=== PATIENT | male | born 1960 | race Caucasian/White ===

== ENCOUNTER 2017-06-22 15:24 | Emergency (ER) | payer MEDICAID ==
[~2017-06-22] VITALS: Ht 177.8 cm; Wt 90.6 kg
[~2017-06-22 15:24] MED LIST: NO HOME MEDS
[2017-06-22] MEDS ORDERED: LORazepam 1 MG tablet PO ONE (17:20)
[2017-06-22] MEDS ORDERED: LORazepam 0.5 MG tablet PO ONE (17:30)
[2017-06-22] MEDS ORDERED: AMOX-419 PO ×2 (19:09→19:14)
[2017-06-22] MEDS ORDERED: TETanus/Pertussis (Acell)/Diphther VAC/PF (Tdap-Adult) 0.5ml syringe IM ONE (19:10)
[2017-06-22 19:32] VITALS: BP 141/97
== END 2017-06-22 19:34 | disposition home or self-care (01) ==
LOC: ER 15:25
DX: S02.2XXA Fracture of nasal bones, initial encounter for closed fracture (principal); Z98.890 Other specified postprocedural states; W18.39XA Other fall on same level, initial encounter; Y93.01 Activity, walking, marching and hiking; Y92.89 Other specified places as the place of occurrence of the external cause; Y99.9 Unspecified external cause status
CPT/HCPCS: 70450; 70486; 72125; 90471; 90715; 99284; A6449

== ENCOUNTER 2020-06-19 09:30 | Emergency (ER) | payer MEDICAID ==
[~2020-06-19] VITALS: Ht 177.8 cm; Wt 89.6 kg
[~2020-06-19 09:30] MED LIST changes: +AMOX-419 PO
[2020-06-19 10:16] LABS: CLARITY,URINE CLEAR (Clear); COLOR,URINE YELLOW (Yellow); GLUCOSE, URINE NEGATIVE (Neg); KETONES,URINE NEGATIVE (Neg); LEUKOCYTE ESTERASE ,URINE NEGATIVE (Neg); NITRITES, URINE NEGATIVE (Neg); OCCULT BLOOD,URINE TRACE-LYSED (Neg); PH,URINE 5.5 (4.8-8.0); PROTEIN,URINE NEGATIVE (Neg); UROBILINOGEN,URINE 0.2 E.U/dL (0.2-1.0)
[2020-06-19 10:18] LABS: UA COLLECTION TYPE CLN CATCH MIDSTREAM
[2020-06-19 10:28] LABS: MUCUS STRANDS FEW /LPF (Neg)
[2020-06-19 10:29] LABS: BACTERIA,URINE FEW /HPF (Neg); RBC,URINE 0-2 /HPF (0-2); SQUAMOUS EPITHELIAL CELL,UR FEW /LPF (FEW); WBC,URINE 0-4 /HPF (0-4)
--- NOTE | 2020-06-19 12:18 | NUR ---
PT BEING SENT TO [facility] FOR TESTICULAR US. [facility]OM[facility] AT [facility] CALLED AND NOTIFIED, FACE SHEET AND ORDER FAXED TO [facility]. Addendum: 06/19/20 at 1228 by OPAL PT INFORMED THAT HE WAS TO GO TO [facility] FOR TESTICULAR US BEFORE 1500 AND TO RETURN TO [facility] FOR FURTHER EVALUATION. PT STATED UNDERSTANDING. [facility] CALLED, THEY RECEIVED FAX OF PT'S FACE SHEET AND US ORDER.
[2020-06-19 15:13] VITALS: BP 137/88
== END 2020-06-19 15:42 | disposition home or self-care (01) ==
LOC: ER 09:30
DX: N50.3 Cyst of epididymis (principal); N50.811 Right testicular pain; Z98.890 Other specified postprocedural states; Z79.2 Long term (current) use of antibiotics
CPT/HCPCS: 76870; 81001; 93976; 99284

== ENCOUNTER 2022-02-03 09:08 | Emergency (ER) | payer MEDICAID ==
[~2022-02-03] VITALS: Ht 177.8 cm; Wt 81.8 kg
[2022-02-03] MEDS ORDERED: LISI10TA27 PO ×2 (09:49)
[2022-02-03] MEDS: lisinopril 10 MG tablet PO ONE (10:00)
--- NOTE | 2022-02-03 10:59 | NUR ---
Pt d/c home via ambulatory in good condition,instructions given,pt verbalied understanding.
[2022-02-03 11:09] VITALS: BP 154/101
== END 2022-02-03 11:11 | disposition home or self-care (01) ==
LOC: ER 09:08
DX: U07.1 COVID-19 (principal); R10.84 Generalized abdominal pain; R09.89 Other specified symptoms and signs involving the circulatory and respiratory systems; G43.909 Migraine, unspecified, not intractable, without status migrainosus; I10 Essential (primary) hypertension; F17.200 Nicotine dependence, unspecified, uncomplicated; Z98.890 Other specified postprocedural states; Z79.2 Long term (current) use of antibiotics; Z79.899 Other long term (current) drug therapy
CPT/HCPCS: 87635; 99283; C9803

== ENCOUNTER 2022-02-13 15:51 | Emergency (ER) | payer MEDICAID ==
[~2022-02-13] VITALS: Ht 177.8 cm; Wt 81.0 kg
[~2022-02-13 15:51] MED LIST changes: +LISI10TA27 PO
[2022-02-13 16:12] VITALS: BP 152/112
[2022-02-13 16:36] LABS: BASOPHILS # (AUTO) 0.2 X10'3 (0-0.2); BASOPHILS % (AUTO) 1.1 % (0-1); EOSINOPHILS # (AUTO) 0.1 X10'3 (0-0.9); EOSINOPHILS % (AUTO) 0.6 % (0-6); HEMATOCRIT 45.3 % (42.0-52.0); LYMPHOCYTES # (AUTO) 2.6 X10'3 (1.1-4.8); LYMPHOCYTES % (AUTO) 16.9 % (21-51); MEAN CORPUSCULAR HEMOGLOBIN 31.4 PG (27.0-31.0); MEAN CORPUSCULAR HGB CONC 35.4 g/dL (33.0-36.5); MEAN CORPUSCULAR VOLUME 88.7 FL (78-98); MEAN PLATELET VOLUME 7.3 FL (7.4-10.4); MONOCYTES % (AUTO) 6.7 % (2-12); NEUTROPHILS # (AUTO) 11.5 X10'3 (1.8-7.7); NEUTROPHILS % (AUTO) 74.7 % (42-75); PLATELET COUNT 269 X10'3 (140-440); RED BLOOD COUNT 5.11 X10'6 (4.70-6.10); WHITE BLOOD COUNT 15.4 X10'3 (4.5-11.0)
[2022-02-13 16:51] LABS: ALANINE AMINOTRANSFERASE 24 U/L (12-78); ALBUMIN 4.3 G/DL (3.4-5.0); ALBUMIN/GLOBULIN RATIO 1.3 (1.1-1.5); ALKALINE PHOSPHATASE 73 IU/L (46-116); ANION GAP 9 (8-16); ASPARTATE AMINO TRANSFERASE 18 U/L (10-37); BILIRUBIN,TOTAL 1.3 MG/DL (0.1-1.0); BLOOD UREA NITROGEN 13 MG/DL (7-18); BUN/CREATININE RATIO 12.6 (5.4-32.0); CHLORIDE 108 MMOL/L (99-107); CREATININE 1.03 MG/DL (0.60-1.10); GLUCOSE 96 MG/DL (70-104); LIPASE 76 U/L (73-393); SODIUM 144 MMOL/L (135-145); TOTAL PROTEIN 7.7 G/DL (6.4-8.2); eGFR 73 ML/MIN
[2022-02-13] MEDS ORDERED: dicyclomine 10 MG capsule PO ONE (19:35)
[2022-02-13] MEDS ORDERED: NAPR-56 PO (21:31)
--- NOTE | 2022-02-14 12:12 | NUR ---
PT CALLED REGARDING VISIT ON 02/13/22. PT HAD HIS RX E-TRANSMITTED TO [facility], STATES THE RX WAS CLOSED AND ASKED IF [facility] [address] [facility]. DR PATTEN NOTIFIED AND RX FOR NAPROXIN 500MG; 1 TAB PO BID #[id number] WITH 2 REFILLS WAS CALLED TO [facility] ON [address] REQUESTED.
== END 2022-02-13 22:00 | disposition home or self-care (01) ==
LOC: ER 15:51
DX: N20.0 Calculus of kidney (principal); G43.909 Migraine, unspecified, not intractable, without status migrainosus; I10 Essential (primary) hypertension; Z79.899 Other long term (current) drug therapy; Z79.2 Long term (current) use of antibiotics
CPT/HCPCS: 36415; 74176; 80053; 83690; 85025; 99284

== ENCOUNTER 2024-07-14 11:54 | Emergency (ER) | payer MEDICAID ==
[~2024-07-14] VITALS: Ht 177.8 cm; Wt 87.0 kg
[~2024-07-14 11:54] MED LIST changes: +NAPR-56 PO
[2024-07-14 12:04] VITALS: BP 160/111; PULSE 86; RESP 16; O2SAT 96
[2024-07-14 13:18] LABS: BASOPHILS # (AUTO) 0.1 X10'3 (0-0.2); BASOPHILS % (AUTO) 0.9 % (0-1); EOSINOPHILS # (AUTO) 0.1 X10'3 (0-0.9); EOSINOPHILS % (AUTO) 1.8 % (0-6); HEMATOCRIT 44.4 % (42.0-52.0); HEMOGLOBIN 15.6 g/dl (14.0-17.9); LYMPHOCYTES # (AUTO) 1.3 X10'3 (1.1-4.8); LYMPHOCYTES % (AUTO) 16.2 % (21-51); MEAN CORPUSCULAR HEMOGLOBIN 32.7 PG (27.0-31.0); MEAN CORPUSCULAR HGB CONC 35.2 g/dL (33.0-36.5); MEAN CORPUSCULAR VOLUME 92.9 FL (78-98); MEAN PLATELET VOLUME 7.4 FL (7.4-10.4); MONOCYTES # (AUTO) 1.1 X10'3 (0-0.9); MONOCYTES % (AUTO) 13.3 % (2-12); NEUTROPHILS # (AUTO) 5.6 X10'3 (1.8-7.7); NEUTROPHILS % (AUTO) 67.8 % (42-75); PLATELET COUNT 251 X10'3 (140-440); RED BLOOD COUNT 4.78 X10'6 (4.70-6.10); RED CELL DISTRIBUTION WIDTH 13.3 % (11.5-14.5); WHITE BLOOD COUNT 8.2 X10'3 (4.5-11.0)
[2024-07-14 13:23] LABS: PROTHROMBIN TIME 10.7 SECONDS (9.0-12.0)
[2024-07-14 13:28] LABS: ALANINE AMINOTRANSFERASE 19 U/L (12-78); ALBUMIN 3.9 G/DL (3.4-5.0); ALBUMIN/GLOBULIN RATIO 1.2 (1.1-1.5); ALKALINE PHOSPHATASE 100 IU/L (46-116); ANION GAP 8 (8-16); ASPARTATE AMINO TRANSFERASE 15 U/L (10-37); BILIRUBIN,TOTAL 1.1 MG/DL (0.1-1.0); BLOOD UREA NITROGEN 7 MG/DL (7-18); BUN/CREATININE RATIO 9.6 (10.0-20.0); CALCIUM 8.5 MG/DL (8.5-10.1); CHLORIDE 105 MMOL/L (99-107); CREATININE 0.73 MG/DL (0.60-1.10); GLUCOSE 94 MG/DL (70-104); POTASSIUM 4.3 MMOL/L (3.5-5.1); SODIUM 139 MMOL/L (135-145); TOTAL PROTEIN 7.1 G/DL (6.4-8.2); eCRCL 106 ML/MIN; eGFR > 90 ML/MIN
[2024-07-14 14:04] VITALS: TEMP 98.5
== END 2024-07-14 14:09 | disposition home or self-care (01) ==
LOC: ER 11:54
DX: S50.11XA Contusion of right forearm, initial encounter (principal); I10 Essential (primary) hypertension; G43.909 Migraine, unspecified, not intractable, without status migrainosus; Z79.2 Long term (current) use of antibiotics; Z79.899 Other long term (current) drug therapy; X58.XXXA Exposure to other specified factors, initial encounter; Y93.89 Activity, other specified; Y92.89 Other specified places as the place of occurrence of the external cause; Y99.8 Other external cause status
CPT/HCPCS: 36415; 73090; 80053; 85025; 85610; 93971; 99284